=== PATIENT | female | born 1980 | race Caucasian/White ===

== ENCOUNTER 2017-05-21 06:09 | Inpatient (IN) | payer BC ==
[2017-05-21] MEDS ORDERED: Morphine PF 1 MG/ML SYR ONE (06:34)
[2017-05-21] MEDS ORDERED: Famotidine/PF 20 mg/2ml Vial ONE (06:34)
[2017-05-21] MEDS ORDERED: Fentanyl 100 MCG/2 ML VIAL ONE (06:35)
[2017-05-21] MEDS ORDERED: Oxytocin 10 UNITS/ML VIAL ONE (06:40)
[2017-05-21] MEDS ORDERED: ePHEDrine/0.9% NaCl/PF SYRINGE 50 mg/10 ml ONE ×2 (06:40→17:30)
[2017-05-21] MEDS ORDERED: PHENYLEPHRINE-NS 100 MCG/ML 10 ML SYRINGE ONE ×2 (06:40→17:30)
[2017-05-21] MEDS ORDERED: Levothyroxine Sodium 100 MCG TAB PO SCH (06:45)
[2017-05-21 06:48] VITALS: BMI 34.1
[2017-05-21] MEDS ORDERED: CEFAZOLIN/Water 2 GM/20 ML SYRINGE SLOW IVP SCH (06:50)
[2017-05-21] MEDS ORDERED: Lactated Ringer's 1,000 ML IV SCH ×2 (06:50)
[2017-05-21] MEDS ORDERED: Promethazine HCl 25 MG/ML VIAL IM PRN ×3 (06:50→07:35)
[2017-05-21] MEDS ORDERED: Bicitra 30 ML UDCUP PO SCH (06:50)
[2017-05-21] MEDS ORDERED: Ondansetron HCl/PF 4 MG/2 ML Vial IVP PRN ×3 (06:50→07:34)
[2017-05-21 07:20] LABS: Hematocrit 28.9 % (36.0-47.0); Mean Platelet Volume 9.1 fL (7.4-10.4); Red Blood Cell (RBC) Count 4.02 mill/uL (4.20-5.40); White Blood Cell (WBC) Count 8.8 thou/uL (4.8-10.8)
[2017-05-21] MEDS ORDERED: Promethazine HCl 25 MG SUPP PR PRN (07:23)
[2017-05-21] MEDS ORDERED: Eucerin (Mineral Oil/Petrolatum,White) 30 gm Jar TOP PRN (07:23)
[2017-05-21] MEDS ORDERED: Naloxone HCl 0.4 mg/ml Vial IV PRN (07:23)
[2017-05-21] MEDS ORDERED: diphenhydrAMINE 50 MG/ML VIAL IVP PRN (07:23)
[2017-05-21] MEDS ORDERED: Naloxone HCl 0.4 mg/ml Vial IVP PRN ×2 (07:23)
[2017-05-21] MEDS ORDERED: Communication Order-Pharmacy FS SCH (07:30)
[2017-05-21] MEDS ORDERED: Bupivacaine 0.25% HCL 30 ML VIAL ONE (08:15)
[2017-05-21] MEDS ORDERED: Ropivacaine 0.2% 550 ML 550 ML FS SCH ×2 (08:30→10:00)
[2017-05-21] MEDS ORDERED: diphenhydrAMINE 25 MG CAP PO PRN (08:33)
[2017-05-21] MEDS ORDERED: Lanolin Ointment 7 GM TUBE TOP PRN (08:33)
[2017-05-21] MEDS ORDERED: Adacel (T-DAP) 0.5 ML VIAL IM ONE (08:33)
--- NOTE | 2017-05-21 08:36 | PDOC.OPDEL ---
OB Operative/Delivery Note Delivery Dr/Surgeon: Bang Assist: Raúl Pre-Delivery Diagnosis: scheduled section Procedure/Post Delivery Dx: repeat low transverse CS Weeks gestation: 39 Anesthesia: spinal - Findings A Sex: female Weight: 8 lb 9 oz - 1 min: 8 - 5 min: 9 - Additional Findings/Plan Placenta delivered: manual removal findings: low transverse hysterotomy without extension
[2017-05-21] MEDS ORDERED: LR w/ Pitocin 40 units/1000 ML BAG IV SCH (08:45)
[2017-05-21] MEDS: Prenatal Vitamin 1 TAB PO SCH (09:01)
[2017-05-21] MEDS: Docusate Calcium (SURFAK) 240 MG CAP PO SCH ×2 (09:01→19:23)
[2017-05-21] MEDS: Ferrous Sulfate 325 MG TAB PO SCH ×2 (09:01→19:23)
[2017-05-21] MEDS ORDERED: Ropivacaine HCl/PF 750 ML in Premix Bag 1 BAG NERVE BLCK SCH (10:15)
[2017-05-21] MEDS ORDERED: Ibuprofen 800 MG TAB PO SCH (14:00)
--- NOTE | 2017-05-21 14:50 | OP ---
DATE OF SURGERY: 05/21/2017 PREOPERATIVE DIAGNOSES: 1. A 37-year-old white female, G4, P2, A1, 39 weeks gestation. 2. Prior section x2 for repeat section. POSTOPERATIVE DIAGNOSES: 1. A 37-year-old white female, G4, P2, A1, 39 weeks gestation. 2. Prior section x2 for repeat section. PROCEDURE PERFORMED: Repeat low-transverse section without extension. SURGEON: Veronica Cuenca M.D. DOCUMENTATION SPECIALIST SURGEON: Citlalli Olsen M.D. ANESTHESIA: Spinal by Dr. Whitley. ESTIMATED BLOOD LOSS: From surgery, 500 mL. ANTIBIOTICS: 2 grams Ancef salon assistant to the OR. FINDINGS: 1. Vigorous female infant, vertex presentation, mild meconium staining of the amniotic fluid noted. Apgars 8 and 9, weight 8 pounds 9 ounces. 2. Normal-appearing fallopian tubes, uterus, and ovaries. 3. Clear urine present in Carrillo catheter post procedure. In addition, On-Q double lumen pump placed for postoperative analgesia pain therapy. DISPOSITION: To the recovery room, stable. DESCRIPTION OF OPERATIVE PROCEDURE: The patient previously received informed consent in regards to randy kaur. She was taken back to the operating room where she received a spinal block without complicat ions. She was then placed in the supine position, prepped and draped in usual sterile fashion. SCDs along with Carrillo catheter had been placed during the prep process. Pfannenstiel incision was made i n the lower abdomen through the previous scar site. This was taken down the fascia and fascia was ni cked in midline. Fascial incision was extended bilaterally with the use of curved Westfall scissors. Th e rectus muscle and fascia was then dissected off the rectus muscle belly superiorly and inferiorly. The rectus muscle bellies were divided in the midline and peritoneal cavity was entered. Peritoneal incision was extended, and a large Sven O retractor was placed. A bladder flap was created in usu al fashion. A 2 cm hysterotomy incision was made in the lower uterine segment. This was extended vi a finger fractionation. The amniotic bag was ruptured with thin meconium fluid staining noted, and t he baby was delivered in vertex presentation. Mouth and nares of the infant was bulb suctioned on th e abdomen. The cord was doubly clamped and cut and the baby was handed to the business editor in attend ance. The usual cord blood was obtained and the placenta was manually extracted. The uterus was cur etted of any remaining placental fragments with a dry laparotomy sponge. Hysterotomy incision was th en closed in running locking fashion with #1 Monocryl suture. The hysterotomy incision was noted to be hemostatic and the pelvis was irrigated and suctioned again confirming hemostasis on the hysteroto my site. At this time, 2 On-Q pump double lumens were placed through the fascia superiorly with the catheters radiating under the fascia towards each angle of the incision. The fascia was then closed in running continuous fashion with 0 PDS suture x2. Subcutaneous tissue was irrigated and noted to b e hemostatic and 3-0 plain gut was placed to rid the of subcu. Of note, the peritoneum was woody sed prior to the closure of the fascia due to the placement of the On-Q pump, but that was closed wit h 3-0 plain gut. The skin was then closed with di. The On-Q pumps were primed with Marcaine and then the pump was set up for placement in the recovery room. The patient was transferred to the rec overy room in stable condition. No anesthetic or surgical complications.
[2017-05-21] MEDS ORDERED: Ketorolac Tromethamine 30 MG/ML VIAL ONE (17:30)
[2017-05-21] MEDS ORDERED: Ondansetron HCl/PF 4 MG/2 ML Vial ONE (17:30)
[2017-05-21] MEDS ORDERED: HYDROcodone/Acetaminophen 5/325 mg Tablet PO PRN (18:35)
[2017-05-21] MEDS ORDERED: Zolpidem Tartrate 5 MG TAB PO PRN (18:36)
[2017-05-21] MEDS: Ketorolac Tromethamine 30 MG/ML VIAL IVP PRN (21:11)
[2017-05-22 05:13] LABS: Hematocrit 27.2 % (36.0-47.0); Mean Platelet Volume 8.6 fL (7.4-10.4); Red Blood Cell (RBC) Count 3.68 mill/uL (4.20-5.40); White Blood Cell (WBC) Count 6.9 thou/uL (4.8-10.8)
[2017-05-22] MEDS: Ketorolac Tromethamine 30 MG/ML VIAL IVP PRN (06:33)
[2017-05-22] MEDS: Levothyroxine Sodium 100 MCG TAB PO SCH (06:34)
[2017-05-22] MEDS ORDERED: Sodium Chloride 0.9% 10 ML ONE (06:38)
--- NOTE | 2017-05-22 09:37 | PDOC.PP ---
Post Progress Note Post Day #: 1 Vital Signs (12 hours) Temp Pulse Resp BP Pulse Ox 05/22/17 08:12 98.1 F 59 L 18 05/22/17 05:15 98.1 F 59 L 18 108/60 95 05/22/17 01:00 98.0 F 65 18 113/65 95 Weight Weight 205 lb Result Diagrams: 05/22/17 04:53 Additional Labs: Post Labs Blood Type O POSITIVE 05/21/17 06:32 Hep Bs Antigen Non-Reactive S/CO (NonReactive) 05/21/17 06:32
[2017-05-22] MEDS: Prenatal Vitamin 1 TAB PO SCH (10:29)
[2017-05-22] MEDS: Docusate Calcium (SURFAK) 240 MG CAP PO SCH ×2 (10:29→20:26)
[2017-05-22] MEDS: Ferrous Sulfate 325 MG TAB PO SCH ×2 (10:29→20:26)
[2017-05-22] MEDS: Ibuprofen 800 MG TAB PO SCH ×2 (12:48→19:54)
[2017-05-22] MEDS: Simethicone Chewable 80 MG TAB PO PRN (12:51)
[2017-05-22] MEDS: HYDROcodone/Acetaminophen 5/325 mg Tablet PO PRN (20:25)
[2017-05-22] MEDS: Milk Of Magnesia 30 ML UDCUP PO PRN (22:13)
[2017-05-23] MEDS: HYDROcodone/Acetaminophen 5/325 mg Tablet PO PRN ×4 (02:08→20:40)
[2017-05-23] MEDS: Simethicone Chewable 80 MG TAB PO PRN ×2 (02:12→17:22)
[2017-05-23] MEDS: Ibuprofen 800 MG TAB PO SCH ×3 (05:55→21:30)
[2017-05-23] MEDS: Levothyroxine Sodium 100 MCG TAB PO SCH (05:55)
--- NOTE | 2017-05-23 07:58 | PDOC.PP ---
Post Progress Note Post Day #: 2 Subjective: Gas pain on llq . Needs to have bm. Has been walking. Passed gas some. No vomiting. Dulcolax suppository now. Clears. Reevaluate later this am. Vital Signs (12 hours) Temp Pulse Resp BP Pulse Ox 05/23/17 07:45 98.7 F 69 20 112/78 97 05/23/17 00:00 98.4 F 80 20 05/22/17 20:00 98.4 F 80 20 Weight Weight 205 lb Result Diagrams: 05/22/17 04:53 Additional Labs: Post Labs Blood Type O POSITIVE 05/21/17 06:32 Hep Bs Antigen Non-Reactive S/CO (NonReactive) 05/21/17 06:32
[2017-05-23] MEDS ORDERED: Bisacodyl 10 MG SUPP PR PRN (07:59)
[2017-05-23] MEDS: Docusate Calcium (SURFAK) 240 MG CAP PO SCH ×2 (09:12→21:30)
[2017-05-23] MEDS: Ferrous Sulfate 325 MG TAB PO SCH ×2 (09:12→21:30)
[2017-05-23] MEDS: Prenatal Vitamin 1 TAB PO SCH (09:12)
[2017-05-23] MEDS: Milk Of Magnesia 30 ML UDCUP PO PRN (17:22)
[2017-05-24] MEDS: Ibuprofen 800 MG TAB PO SCH (06:21)
[2017-05-24] MEDS: Levothyroxine Sodium 100 MCG TAB PO SCH (06:21)
--- NOTE | 2017-05-24 08:02 | PDOC.PP ---
Post Progress Note Post Day #: 3 PO intake tolerated: yes Flatus: yes Ambulation: yes Vital Signs (12 hours) Temp Pulse Resp BP Pulse Ox 05/23/17 20:30 98.4 F 75 20 122/69 98 Weight Weight 205 lb - Physical Examination Abdominal: + bowel sounds, lochia, no distention, appropriately TTP Result Diagrams: 05/22/17 04:53 Additional Labs: Post Labs Blood Type O POSITIVE 05/21/17 06:32 Hep Bs Antigen Non-Reactive S/CO (NonReactive) 05/21/17 06:32 - Assessment/Plan doing well. had bm. passing flatus. d/c home f/u in 6 weeks
[2017-05-24 08:49] VITALS: BP 121/69; TEMP 97.9
[2017-05-24] MEDS: Docusate Calcium (SURFAK) 240 MG CAP PO SCH (09:36)
[2017-05-24] MEDS: Prenatal Vitamin 1 TAB PO SCH (09:36)
[2017-05-24] MEDS: Ferrous Sulfate 325 MG TAB PO SCH (09:36)
[2017-05-24] MEDS: HYDROcodone/Acetaminophen 5/325 mg Tablet PO PRN (09:36)
== END 2017-05-24 12:00 | disposition home or self-care (01) | DRG 766 ==
LOC: L&D 06:09 → 3SW 12:34
PROVIDERS: ADMIT Obstetrics & Gynecology; ATTEND Obstetrics & Gynecology
PROC: 10D00Z1 Extraction of Products of Conception, Low, Open Approach (ICD-10-PCS; principal; 2017-05-21)
DX: O34.211 Maternal care for low transverse scar from previous cesarean delivery (principal); E03.9 Hypothyroidism, unspecified; Z3A.39 39 weeks gestation of pregnancy; Z37.0 Single live birth; O99.283 Endocrine, nutritional and metabolic diseases complicating pregnancy, third trimester
CPT/HCPCS: 36415; 85027; 86780; 86850; 86900; 86901; 87340; A4216; A4306; J1885; J2274; J2405; J2590; J2795; J3010; S0020; S0028